=== PATIENT | male | born 1965 | race Caucasian/White ===

== ENCOUNTER → 2019-08-01 11:01 | Outpatient (CLI) | payer OTHER, SELFPAY ==
[2017-04-18 06:27] VITALS: BMI 37.0
[2019-08-01 11:59] LABS: Absolute Lymphocyte Count 1.27 X10^3/uL (0.83-4.51); Absolute Neutrophil Count 2.7 X10^3/uL (2.0-7.7); Basophil# 0.02 X10^3/uL; Basophil% 0.4 % (0-1); Eosinophil# 0.21 X10^3/uL; Eosinophils% 4.6 % (0-5); Hematocrit 44.1 % (40-54); Hemoglobin 14.8 g/dL (13.0-16.5); Lymphocyte # 1.27 X10^3/ul (4.0); Mean Corp Hgb Conc 33.6 g/dL (32-36); Mean Corpuscular Hgb 31.4 pg (27.0-32.0); Mean Corpuscular Volume 93.6 fL (80-94); Mean Platelet Vol. 9.2 fl (6.2-12.0); Monocyte# 0.32 X10^3/uL; Monocyte% 7.1 % (0-10); NRBC Flagged by Analyzer 0 % (0-5); Neutrophil # 2.69 X10^3/uL (2.7-7.7); Neutrophil % 59.5 % (47-70); Platelet Count 104 K/mm3 (150-450); RBC Distribution Width CV 13.1 % (11.6-14.6); RBC Distribution Width SD 44.8 fl (35.1-43.9); Red Blood Count 4.71 M/mm3 (4.6-6.2); White Blood Count 4.5 K/mm3 (4.4-11.0)
[2019-08-01 12:24] LABS: ALB/GLOB Ratio 1.1 RATIO (0.9-2.4); AST(SGOT) 16 U/L (15-37); Alanine Aminotransfer ALT/SGPT 26 U/L (16-61); Albumin, Serum 3.9 g/dL (3.2-5.0); Alkaline Phosphatase 61 U/L (45-117); Anion Gap 3 (5-15); BUN 14 mg/dL (7-18); BUN/Creat Ratio 17.3 RATIO (10-20); Calcium,Total 8.5 mg/dL (8.5-10.1); Chloride 107 mmol/L (98-107); Cholesterol 170 mg/dL (200); Creatinine, Serum 0.81 mg/dL (0.70-1.30); EST Glomerular Filtration Rate 105 mL/min (>60); Est Glom Filt Rate - Afr Amer 128 mL/min (>60); Globulin 3.7 g/dL (2.2-4.2); Glucose 116 mg/dL (74-106); High Density Lipoprotein 51 mg/dL; Potassium 4.1 mmol/L (3.5-5.1); Protein, Total 7.6 g/dL (6.4-8.2); Sodium Level 140 mmol/L (136-145); Triglycerides 44 mg/dL; Very Low Density Lipoprotein 9 mg/dL (5-40)
[2019-08-01 12:29] LABS: Microalbumin,Random Urine 33.6 mg/L (NO RANGE EST.); Microalbumin:Creatinine Ratio 37.7 mg/g CRE (<30 mg/g CRE)
== END ==
PROVIDERS: PCP Family Medicine; Referring Provider Family Medicine; Visit Provider Family Medicine
DX: E11.9 Type 2 diabetes mellitus without complications (principal); D64.9 Anemia, unspecified
CPT/HCPCS: 36415; 80053; 80061; 82043; 82570; 85025

== ENCOUNTER → 2019-09-28 07:08 | Outpatient (CLI) | payer OTHER, SELFPAY ==
[2019-08-26 10:32] VITALS: BMI 35.9
--- NOTE | 2019-09-28 07:09 | ECHOCS_ITS ---
Reason For Study: HTN Procedure This was a 2D Doppler, Color Flow transthoracic echocardiogram. The study was technically difficult. Exam performed in department. Left Ventricle Normal LV size. Left ventricular systolic function is normal. The estimated ejection fraction is 65 %. Stage 1 diastolic dysfunction. No regional wall motion abnormalities noted. Right Ventricle Normal RV size. Normal systolic function. Atria Normal left atrium. Normal right atrium. Mitral Valve Normal mitral valve. Tricuspid Valve Normal tricuspid valve. Mild (1+) tricuspid valve insufficiency. Pulmonary artery systolic pressure is 26 mmHg. Aortic Valve Normal aortic valve. Pulmonic Valve Normal pulmonic valve. Great Vessels Normal aortic root. The pulmonary artery is normal size. Normal inferior vena cava. Pericardium/Pleural No pericardial effusion. Medication Diluted definity 3ml given slow IV push to enhance endocardial definition. MMode/2D Measurements & Calculations LVIDd: 4.8 cm IVSd: 0.97 cm Ao root diam: 4.0 cm LVIDs: 2.8 cm LVPWd: 0.97 cm RVDd: 3.5 cm FS: 41.0 % LAV(MOD-bp): 67.7 ml LVAd ap4: 34.7 cm2 SV(MOD-sp4): 86.1 ml LAV(MOD-bp) Indexed: 30.7 ml/m2 EDV(MOD-sp4): 120.7 ml LAV(MOD-sp2): 66.6 ml EDV(sp4-el): 126.0 ml LAV(MOD-sp4): 58.0 ml LVAs ap4: 16.3 cm2 ESV(MOD-sp4): 34.6 ml ESV(sp4-el): 33.7 ml EF(MOD-sp4): 71.3 % EF(sp4-el): 73.3 % SV(sp4-el): 92.4 ml LA A4 area: 22.3 cm2 LA dimension(2D): 3.9 cm RA A4 area: 15.2 cm2 Time Measurements MV dec time: 0.21 sec Doppler Measurements & Calculations MV E max trevor: 71.8 cm/sec Lat Peak E' Trevor: 9.7 cm/sec Med Peak E' Trevor: 7.6 cm/sec MV A max trevor: 82.4 cm/sec E/E' lat: 7.4 E/E' med: 9.5 MV E/A: 0.87 Ao V2 max: 155.9 cm/sec LV V1 max: 105.3 cm/sec PA V2 max: 95.2 cm/sec Ao max P.7 mmHg LV V1 max P.4 mmHg TR max trevor: 236.3 cm/sec TR max P.4 mmHg Interpretation Summary Normal LV size. Left ventricular systolic function is normal. The estimated ejection fraction is 65 %. Stage 1 diastolic dysfunction. Contrast injection was performed. Ordering Physician: Senthil Hummel Referring Physician: Mayur Rodriguez Performed By: Yazmin Nair, LULI, RVT
--- NOTE | 2019-09-28 11:02 | STRESSREP ---
Stress Test Report Exercise myocardial perfusion stress test. 54-year-old man with a history of right bundle branch block and chest discomfort. Stress protocol: Resting EKG demonstrates normal sinus rhythm with a rate of 71 bpm and a right bundle branch block noted. Resting blood pressure is 122/88 mmHg. The patient exercised according to regular Deon protocol for total duration of 6 minutes. The maximum heart rate attained was 146 bpm which was 87% of maximum predicted heart rate the maximum workload was 7 metabolic equivalents. At rest there were no ST or T wave changes noted suggest ischemia at peak exercise nonspecific ST-T wave changes were noted. No chest pain was noted. Slight shortness of breath was present. Resting blood pressure at the resting blood pressure was 122/88 with a peak blood pressure 152/96 rate-pressure product was 21,800. Myocardial perfusion protocol. 15.0 mCi of technetium 99m sestamibi was injected at rest. Patient exercised according to regular Deon protocol for 6 minutes at peak exercise 45.0 mCi of technetium 99m sestamibi was injected stress images were obtained stress and rest images were reconstructed and compared in the short axis vertical and horizontal long axis. Gated images were also obtained Perfusion SPECT analysis: Review of the stress images demonstrate normal uptake of tracer noted in all areas of myocardium the resting images similar demonstrate normal uptake of tracer noted in all areas of the myocardium. No reversibility is noted suggest ischemia no previous infarct is noted. Gated SPECT analysis: The gated ejection fraction is 68%. Conclusion: Normal exercise myocardial perfusion stress test at a moderate workload. Preserved ejection fraction.
== END ==
PROVIDERS: PCP Family Medicine; Referring Provider Internal Medicine Cardiovascular Disease; Visit Provider Internal Medicine Cardiovascular Disease
DX: R03.0 Elevated blood-pressure reading, without diagnosis of hypertension (principal); R07.89 Other chest pain
CPT/HCPCS: 78452; 93017; 93306; A9500; Q9957; A4216; C8929

== ENCOUNTER → 2021-11-22 | Outpatient (CLI) | payer OTHER, SELFPAY ==
[2021-11-22 17:39] LABS: Absolute Lymphocyte Count 1.55 X10^3/uL (0.83-4.51); Absolute Neutrophil Count 3.6 X10^3/uL (2.0-7.7); Basophil# 0.02 X10^3/uL; Basophil% 0.4 % (0-1); Eosinophil# 0.15 X10^3/uL; Eosinophils% 2.6 % (0-5); Hematocrit 40.7 % (40-54); Hemoglobin 13.6 g/dL (13.0-16.5); Lymphocyte # 1.55 X10^3/ul (0.83-4.51); Lymphocyte % 27.2 % (19-41); Mean Corp Hgb Conc 33.4 g/dL (32-36); Mean Corpuscular Hgb 30.6 pg (27.0-32.0); Mean Corpuscular Volume 91.7 fL (80-94); Mean Platelet Vol. 9.1 fl (6.2-12.0); Monocyte# 0.39 X10^3/uL; Monocyte% 6.9 % (0-10); NRBC Flagged by Analyzer 0 % (0-5); Neutrophil # 3.56 X10^3/uL (2.7-7.7); Neutrophil % 62.5 % (47-70); Platelet Count 117 K/mm3 (150-450); RBC Distribution Width CV 13.2 % (11.6-14.6); RBC Distribution Width SD 43.9 fl (35.1-43.9); Red Blood Count 4.44 M/mm3 (4.6-6.2); White Blood Count 5.7 K/mm3 (4.4-11.0)
[2021-11-22 18:00] LABS: Hemoglobin A1c 6.6 % (3.8-5.6)
[2021-11-22 18:04] LABS: ALB/GLOB Ratio 1.1 RATIO (0.9-2.4); AST(SGOT) 20 U/L (15-37); Alanine Aminotransfer ALT/SGPT 32 U/L (16-61); Albumin, Serum 3.8 g/dL (3.2-5.0); Alkaline Phosphatase 59 U/L (45-117); Anion Gap 3 (5-15); BUN 21 mg/dL (7-18); BUN/Creat Ratio 24.6 RATIO (10-20); Calcium,Total 8.8 mg/dL (8.5-10.1); Chloride 106 mmol/L (98-107); Cholesterol 187 mg/dL (200); Creatinine, Serum 0.86 mg/dL (0.70-1.30); EST Glomerular Filtration Rate 98 mL/min (>60); Est Glom Filt Rate - Afr Amer 119 mL/min (>60); Globulin 3.5 g/dL (2.2-4.2); Glucose 131 mg/dL (74-106); High Density Lipoprotein 42 mg/dL; Protein, Total 7.3 g/dL (6.4-8.2); Sodium Level 137 mmol/L (136-145); Triglycerides 197 mg/dL; Very Low Density Lipoprotein 39 mg/dL (5-40)
== END | disposition home or self-care (01) ==
LOC: MFPLAB 14:58
PROVIDERS: PCP Family Medicine; Visit Provider Family Medicine
DX: D69.6 Thrombocytopenia, unspecified (principal); E66.01 Morbid (severe) obesity due to excess calories; E11.9 Type 2 diabetes mellitus without complications
CPT/HCPCS: 36415; 80053; 80061; 83036; 85025

== ENCOUNTER → 2021-11-24 | Outpatient (CLI) | payer OTHER, SELFPAY ==
[2021-11-24 08:35] LABS: Microalbumin,Random Urine 40.6 mg/L (NO RANGE EST.)
== END | disposition home or self-care (01) ==
LOC: LAB 07:10
PROVIDERS: PCP Family Medicine; Visit Provider Family Medicine
DX: E11.9 Type 2 diabetes mellitus without complications (principal)
CPT/HCPCS: 82043

== ENCOUNTER → 2022-01-15 | Outpatient (CLI) | payer OTHER, SELFPAY | END | disposition home or self-care (01) | LOC: LABSPEC 16:41 | PROVIDERS: PCP Family Medicine; Visit Provider Family Medicine | DX: U07.1 COVID-19 (principal) | CPT/HCPCS: 87635; U0003; U0005 ==

== ENCOUNTER → 2023-12-18 | Outpatient (CLI) | payer OTHER, SELFPAY ==
--- NOTE | 2023-12-18 11:14 | RAD_ITS ---
STUDY: X-RAY - RIGHT KNEE REASON FOR EXAM: Male, 58 years old. knee pain TECHNIQUE: 4 view(s) of the knee. COMPARISON: None. FINDINGS: Normal visualized distal femur. Normal visualized proximal tibia and fibula. Normal proximal tibiofibular articulation. There is severe degenerative arthrosis of the medial femorotibial compartment with severe joint space narrowing. There is mild degenerative arthrosis of the lateral femorotibial compartment. There is mild degenerative arthrosis of the patellofemoral articulation. There is a soft tissue prominence in the suprapatellar region suggesting a small volume joint effusion. The soft tissue structures are unremarkable. RAD/Knee 4 or More Views IMPRESSION: Degenerative arthrosis. Electronically Signed: John Cameron MD at 13:35 EDT ,
[2023-12-18 15:23] LABS: Absolute Lymphocyte Count 1.49 X10^3/uL (0.83-4.51); Absolute Neutrophil Count 3.8 X10^3/uL (2.0-7.7); Basophil# 0.04 X10^3/uL; Basophil% 0.6 % (0-1); Eosinophil# 0.84 X10^3/uL; Eosinophils% 12.7 % (0-5); Hematocrit 41.7 % (40-54); Lymphocyte # 1.49 X10^3/ul (0.83-4.51); Lymphocyte % 22.5 % (19-41); Mean Corp Hgb Conc 33.6 g/dL (32-36); Mean Corpuscular Hgb 30.6 pg (27.0-32.0); Mean Corpuscular Volume 91.2 fL (80-94); Mean Platelet Vol. 8.8 fl (6.2-12.0); Monocyte# 0.43 X10^3/uL; Monocyte% 6.5 % (0-10); NRBC Flagged by Analyzer 0 % (0-5); Neutrophil # 3.81 X10^3/uL (2.7-7.7); Neutrophil % 57.4 % (47-70); Platelet Count 116 K/mm3 (150-450); RBC Distribution Width CV 13.1 % (11.6-14.6); RBC Distribution Width SD 43.8 fl (35.1-43.9); Red Blood Count 4.57 M/mm3 (4.6-6.2); White Blood Count 6.6 K/mm3 (4.4-11.0)
[2023-12-18 15:44] LABS: Vitamin D,25 Hydroxy 31.8 ng/mL
[2023-12-18 15:50] LABS: AST(SGOT) 21 U/L (15-37); Alanine Aminotransfer ALT/SGPT 29 U/L (16-61); Albumin, Serum 3.7 g/dL (3.2-5.0); Alkaline Phosphatase 64 U/L (45-117); Anion Gap 5 (5-15); BUN 18 mg/dL (7-18); BUN/Creat Ratio 24.4 RATIO (10-20); Calcium,Total 9.1 mg/dL (8.5-10.1); Chloride 106 mmol/L (98-107); Cholesterol 172 mg/dL (200); Creatinine, Serum 0.74 mg/dL (0.70-1.30); EST Glomerular Filtration Rate 116 mL/min (>60); Est Glom Filt Rate - Afr Amer 140 mL/min (>60); Globulin 3.6 g/dL (2.2-4.2); Glucose 125 mg/dL (74-106); High Density Lipoprotein 44 mg/dL; PSA,Total - Annual Screen 0.89 ng/mL (0.00-4.00); Protein, Total 7.3 g/dL (6.4-8.2); Sodium Level 138 mmol/L (136-145); Thyroid Stim Hormone (TSH) 2.69 uIU/mL (0.358-3.74); Triglycerides 86 mg/dL; Very Low Density Lipoprotein 17 mg/dL (5-40)
== END | disposition home or self-care (01) ==
LOC: MTLAB 11:07
PROVIDERS: PCP Family Medicine; Referring Provider Family Medicine; Visit Provider Family Medicine
DX: E11.9 Type 2 diabetes mellitus without complications (principal); E66.01 Morbid (severe) obesity due to excess calories; M17.10 Unilateral primary osteoarthritis, unspecified knee; D69.6 Thrombocytopenia, unspecified; Z12.5 Encounter for screening for malignant neoplasm of prostate
CPT/HCPCS: 36415; 73564; 80053; 80061; 82306; 84153; 84443; 85025; G0103

== ENCOUNTER → 2024-12-25 | Outpatient (CLI) | payer OTHER, SELFPAY ==
--- NOTE | 2024-12-25 07:23 | CT_ITS ---
PROCEDURE: LIMITED CHEST CT CARDIAC ONLY 12/25/2024 REASON FOR EXAM: HTN Family history of coronary disease. Right bundle branch block TECHNIQUE: LIMITED CHEST CT CARDIAC ONLY CONTRAST: None One or more dose reduction techniques were used (e.g., Automated exposure control, adjustment of the mA and/or kV according to patient size, use of iterative reconstruction technique). RADIATION DOSE SUMMARY: CTDlvol: 12.19 mGy DLP: 195.04 mGycm COMPARISON: None FINDINGS: Small benign-appearing mediastinal lymph nodes. Small bilateral benign- appearing axillary lymph nodes. Borderline cardiomegaly. Coronary artery calcification. Lungs are clear. CT/Limited Chest CT Cardiac Only IMPRESSION: Coronary artery calcification. Reading Location: [id number]
--- NOTE | 2024-12-25 07:23 | CT_ITS ---
PROCEDURE: LIMITED CHEST CT CARDIAC ONLY 12/25/2024 REASON FOR EXAM: HTN Family history of coronary disease. Right bundle branch block TECHNIQUE: LIMITED CHEST CT CARDIAC ONLY CONTRAST: None One or more dose reduction techniques were used (e.g., Automated exposure control, adjustment of the mA and/or kV according to patient size, use of iterative reconstruction technique). RADIATION DOSE SUMMARY: CTDlvol: 12.19 mGy DLP: 195.04 mGycm COMPARISON: None FINDINGS: Small benign-appearing mediastinal lymph nodes. Small bilateral benign- appearing axillary lymph nodes. Borderline cardiomegaly. Coronary artery calcification. Lungs are clear. CT/Limited Chest CT Cardiac Only IMPRESSION: Coronary artery calcification. Reading Location: [id number]
--- OUTSIDE RECORDS SUMMARY | 2024-12-25 07:39 | XMS RPT_ITS | CCD ---
Author Organization [facility] Care Team Providers Care Sexologist Name Role Phone Nathen Powell MD Primary Care Provider Nathen Powell MD Referring Provider Shaheed CORTEZ, Dr. Ndiaye Attending Provider Senthil Hummel Attending Unavailable Nathen Powell Referring Unavailable Nathen Powell Primary Care Unavailable Nathen Powell Primary Care Unavailable Senthil Hummel Referring Unavailable Senthil Hummel Attending Unavailable Medications Current Medications Medication Drug Class(es) Dates Sig (Normalized) Sig (Original) famotidine 20 mg oral tablet (3 sources) Histamine-2 Receptor Antagonist Start: 08-26-2019 take 1 tablet by mouth once daily as needed Famotidine 20 mg tablet Active 20 mg PO DAILY as needed August 26, 2019 12:00am fluticasone propionate 0.05 mg/actuat metered dose nasal spray (4 sources) Corticosteroid Start: 05-03-2021 End: 11-03-2024 take 50 ug nasal route once daily as needed Fluticasone Propionate (Flonase Allergy Relief) 50 mcg/actuation spray,suspension Active 1 NMA INTRANASAL DAILY as needed November 03, 2024 3:30pm administer into each nostril Start: 05-03-2021 take 1 spray(s) nasa l route once daily Fluticasone Propionate (Flonase Allergy Relief) 50 mcg/actuation spray,suspension Active 1 SPRAY INTRANASAL DAILY May 03, 2021 1:00am administer into each nostril lisinopril 20 mg oral tablet (18 sources) Angiotensin Converting Enzyme Inhibitor Start: 08-26-2019 End: 11-03-2024 take 1 tablet by mouth once daily Lisinopril 20 mg tablet Active 20 mg PO DAILY 90 November 03, 2024 3:32pm Start: 08-26-2019 End: 08-26-2019 take 1 tablet by mouth once daily Lisinopril 10 mg tablet Discontinued 10 mg PO DAILY August 26, 2019 12:00am August 26, 2019 11:59am Start: 04-15-2017 End: 08-26-2019 take 1 tablet by mouth at bedtime Lisinopril 5 MG tablet Discontinued 5 mg PO AT BEDTIME April 15, 2017 1:00am August 26, 2019 11:21am loratadine 10 mg oral tablet (2 sources) Start: 06-29-2022 End: 09-18-2023 take 1 tablet by mouth once daily as needed Loratadine 10 mg tablet Active 10 mg PO DAILY as needed September 18, 2023 1:27pm magnesium chloride 598 mg delayed release oral tablet (1 source) Start: 11-03-2024 take 1 tablet by mouth once daily Magnesium Chloride 64 mg tablet,delayed release (DR/EC) Active 64 mg PO daily November 03, 2024 12:00am metFORMIN hydrochloride 500 mg oral tablet (4 sources) Biguanide Start: 11-03-2024 take 1 tablet by mouth twice daily Metformin 500 mg tablet Active 500 mg PO TWICE A DAY November 03, 2024 3:30pm Start: 04-15-2017 End: 11-03-2024 Metformin 500 MG tablet Disc ontinued 250 mg PO TWICE A DAY April 15, 2017 1:00am November 03, 2024 3:32pm Start: 04-15-2017 take 250 mg by mouth twice daily Metformin Active 250 MG PO TWICE A DAY April 15, 2017 1:00am Multivitamin preparation (4 sources) Start: 08-26-2019 take 1 tablet by mouth once daily Multivitamin Active 1 TABLET PO DAILY August 26, 2019 12:00am Start: 04-15-2017 End: 08-26-2019 Multivitamin Discontinued 1 EACH PO DAILY April 15, 2017 1:00am August 26, 2019 11:22am Multivitamin tablet (1 source) Start: 08-26-2019 Multivitamin tablet Active 1 {tbl} PO DAILY August 26, 2019 12:00am omeprazole 20 mg delayed release oral capsule (1 source) Proton Pump Inhibitor Start: 11-03-2024 take 1 capsule by mouth once daily Omeprazole 20 mg capsule,delayed release(DR/EC) Active 20 mg PO daily Angie 17th, 2025 12:00am pseudoephedrine hydrochloride 30 mg oral tablet (1 source) alpha-Adrenergi c Agonist Start: 06-29-2022 take 1 tablet by mouth once as needed Pseudoephedrine Hcl (Sudafed) 30 mg tablet Active 30 mg PO ONCE as needed June 29, 2022 1:00am Completed/Discontinued Medications Medication Drug Class(es) Dates Sig (Normalized) Sig (Original) B-Complex With Vitamin C (2 sources) Start: 03-29-2020 End: 05-03-2021 take 1 capsule by mouth once daily B-Complex With Vitamin C Discontinued 1 CAP PO DAILY March 29, 2020 1:00am May 03, 2021 2:39pm B-Complex With Vitamin C capsule (1 source) Start: 03-29-2020 End: 05-03-2021 B-Complex With Vitamin C capsule Discontinued 1 NMA PO DAILY March 29, 2020 1:00am May 03, 2021 2:39pm cinnamon bark 500 mg oral capsule (3 sources) Start: 04-15-2017 End: 08-26-2019 take 1 capsule by mouth twice daily Cinnamon Bark 500 MG capsule Discontinued 500 mg PO TWICE A DAY April 15, 2017 1:00am August 26, 2019 11:21am ferrous sulfate 140 mg extended release oral tablet (6 sources) Start: 03-29-2020 End: 06-29-2022 take 1 tablet by mouth every other day Ferrous Sulfate 140 mg (45 mg iron) tablet extended release Discontinued 140 mg PO .QOD March 29, 2020 1:00am June 29, 2022 3:36pm Start: 08-26-2019 End: 03-29-2020 take 1 tablet by mouth once daily as needed Ferrous Sulfate 325 mg (65 mg iron) tablet Discontinued 325 mg PO DAILY as needed August 26, 2019 12:00am March 29, 2020 4:29pm Lactobacillus Combination No.9 (Adult 50 Plus Probiotic) 4 billion cell capsule (1 source) Start: 06-29-2022 End: 09-18-2023 take 4 capsules by mouth once daily as needed Lactobacillus Combination No.9 (Adult 50 Plus Probiotic) 4 billion cell capsule Discontinued 4000 NMA PO DAILY as needed June 29, 2022 1:00am September 18, 2023 1:15pm administer with a meal meloxicam 15 mg oral tablet (1 source) Nonsteroidal Anti-inflammatory Drug Start: 06-29-2022 End: 09-18-2023 take 1 tablet by mouth once daily as needed Meloxicam 15 mg tablet Discontinued 15 mg PO DAILY as needed June 29, 2022 1:00am September 18, 2023 1:15pm Multivitamin 1 EACH tablet (1 source) Start: 04-15-2017 End: 08-26-2019 Multivitamin 1 EACH tablet Discontinued 1 NMA PO DAILY April 15, 2017 1:00am August 26, 2019 11:22am PARoxetine hydrochloride 10 mg oral tablet (3 sources) Serotonin Reuptake Inhibitor Start: 04-15-2017 End: 08-26-2019 take 1 tablet by mouth every other day Paroxetine Hcl 10 MG tablet Discontinued 10 mg PO EVERY OTHER DAY April 15, 2017 1:00am August 26, 2019 11:22am [place] (6 sources) Start: 08-26-2019 End: 11-03-2024 take 1 capsule by mouth twice daily at mealtime [place] 450 mg capsule Discontinued 450 mg PO TWICE A DAY August 26, 2019 12:00am November 03, 2024 3:30pm give with food (meal/snack) Start: 08-26-2019 take 450 mg by mouth twice daily at mealtime [place] Active 450 MG PO TWICE A DAY August 26, 2019 12:00am give with food (meal/snack) Start: 04-15-2017 End: 08-26-2019 take 1 capsule by mouth twice daily [place] 160 MG capsule Discontinued 160 mg PO TWICE A DAY April 15, 2017 1:00am August 26, 2019 11:22am Start: 04-15-2017 End: 08-26-2019 take 160 mg by mouth twice daily [place] Disconti nued 160 MG PO TWICE A DAY April 15, 2017 1:00am August 26, 2019 11:22am Vitamin B Complex (2 sources) Start: 04-15-2017 End: 08-26-2019 Vitamin B Complex Discontinu ed 1 TABLET PO NEEDED April 15, 2017 1:00am August 26, 2019 11:22am Vitamin B Complex 1 EACH capsule (1 source) Start: 04-15-2017 End: 08-26-2019 Vitamin B Complex 1 EACH cap mann Discontinued 1 {tbl} PO NEEDED as needed for COLD SYMPTOMS April 15, 2017 1:00am August 26, 2019 11:22am Problems Problem Classification Problem Date Documented Da te Episodic/Chronic Conduction disorders (4 sources) Right bundle branch block; Translations: [Unspecified right bundle-branch block] Onset: 12-21-2024 08-25-2019 Chronic Essential hypertension (4 sources) Essential hypertension; Translations: [Essential (primary) hypertension] Onset: 12-21-2024 03-28-2020 Chronic Nonspecific chest pain (4 sources) Chest discomfort; Translations: [Other chest pain] 03-28-2020 Episodic Other circulatory disease (3 sources) Elevated blood-pressure reading without diagnosis of hypertension; Translations: [Elevated blood-pressure reading, without diagnosis of hypertension] 03-28-2020 Episodic Other lower respiratory disease (1 source) Dyspnea; Translations: [Shortness of breath] 07-12-2022 Episodic Residual codes; unclassified (1 source) Obstructive sleep apnea syndrome; Translations: [Obstructive sleep apnea (adult) (pediatric)] 06-29-2022 Chronic Results Test Name Value Interpretation Reference Range Facility Cardiology Visit Reporton Cardiology Visit Report [facility] [place] [id number] [facility] [address] [place] [address] OFFICE VISIT Date of Service: 11/03/24 MR#: [id number] Acct: [id number] Name: DOV ANNE Rep #: [id number] : 1965 Provider: Dr. Senthil Hummel MD Age/Sex: 59/M Location[place] [facility] [place] Status: Signed HPI HPI History of Present Illness Details: This is a 59-year-old male who presents to the office today for a cardiovascular follow up visit. He has a history of hypertension and diabetes who presents for follow-up visit. He says that he has been giving occasional mild chest discomfort which he calls indigestion. He also gets some shortness of breath after meals. He remember that in September 2019 he underwent an exercise stress test with no evidence of ischemia was noted on the moderate workload and he did have preserved left ventricular systolic function. From a cardiac standpoint, the patient is doing well. He does acknowledge an occasional palpitation- he describes this as a skipped beat. He denies chest pain, pressure or heaviness. He denies SOB, Orthopnea, and PND. He does wear a CPAP at night. He does not have bleeding issues; no blood in urine, stool or nosebleeds. He denies any decrease in energy level, myalgias, or claudication. He does not have edema, or sudden weight gain. He does acknowledge occasional lightheadedness with low blood sugars. He denies dizziness, syncopal or near syncopal episodes, and headaches. 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 Accompanied by: Self Is patient in pain?: No Allergies No Known Allergies Allergy (Verified 11/03/24 15:29) Medications ???Medication ???Instructions ???Recorded ???Confirmed ???Type famotidine 20 mg tablet 20 mg PO DAILY PRN 08/26/19 History multivitamin 1 tab PO DAILY 08/26/19 11/03/24 H istory pseudoephedrine HCl 30 mg tablet 30 mg PO ONCE PRN 06/29/22 5 History (Sudafed) loratadine 10 mg tablet 10 mg PO DAILY PRN 09/18/23 History fluticasone propionate 50 1 spray intranasal DAILY PRN 11/0311/03/24 History mcg/actuation nasal spray,suspension (Flonase Allergy Relief) lisinopril 20 mg tablet 20 mg PO DAILY #90 tabs 11/03/24 0 11/03/24 Rx magnesium chloride 64 mg 64 mg PO QDAY 11/03/24 11/03/24 Hi story (magnesium chloride) tablet,delayed release metformin 500 mg tablet 500 mg PO BID 11/03/24 11/03/24 Hi story omeprazole 20 mg capsule,delayed 20 mg PO QDAY 11/03/24 11/03/24 Hi story release PFSH Medical History Chest pain Essential (primary) hypertension FIOR (generalized anxiety disorder) GERD (gastroesophageal reflux disease) Obesity DALY on CPAP Right bundle branch block (RBBB) Shortness of breath Thrombocytopenia Type 2 diabetes mellitus Surgical History H/O rectal polypectomy History of hand surgery History of tonsillectomy Family History Father Heart disease arrhythmia Grandmother CAD (coronary artery disease) CABG Aunt CAD (coronary artery disease) coronary stents Mother COPD (chronic obstructive pulmonary disease) Social History Smoking Status: Never smoker alcohol intake: current alcohol intake frequency: a few times a month substance use type: does not use caffeine: Yes Type: coffee Number of servings: 3 ROS Const Const: Negative for fatigue, weakness, headache(s), daytime sleepiness or difficulty sleeping ENT ENT: Negative for headache(s), dizziness or Nosebleed/epistaxis Cardio Chest Pain: No Palpitations: No Edema: None (wears compression stockings ) Resp Respiratory: Negative for SOB with activity, SOB at rest, SOB orthopnea SOB lying down or Cough GI GI: Negative nausea, vomiting or heartburn Neuro Neuro: Negative for dizziness, lightheadedness, near syncope, headache(s) or weakness Endo Endo: Negative for fatigue Supplemental Info Supplemental Information Echocardiogram 09/28/2019: Interpretation Summary Normal LV size. Left ventricular systolic function is normal. The estimated ejection fraction is 65 %. Stage 1 diastolic dysfunction. Contrast injection was performed. Stress test 09/28/2019: Conclusion: Normal exercise myocardial perfusion stress test at a moderate workload. Preserved ejection fraction. Labs: LDL Cholesterol 111 mg/dL (0-130) HDL Cholesterol 44 mg/dL (4 (more content not included)... Normal [facility] - Microbiology an d Antimicrobial susceptibilityon 01-15-2022 SARS-CoV-2 (COVID-19) RNA JESSICA+probe Ql (Unsp spec) Detected Not Detect [facility] Work Phone: Comment on above: Normal Reference Ran ge: Not DetectedMethod:(RT-PCR) real-time reverse transcriptase PCRLuminex JIM Instrument*The Food and Drug Administration (FDA) has issued an Emergency Use Authorization (EAU) for the JIM SARS-CoV-2 Assay for the rapid detection of the virus that causes COVID-19. This test has been validated, but the FDAs independent review of this validation is pending.*Negative results do not preclude infection and should not be used as the sole basis for treatment or patient management. Optimum specimen types and timing for peak viral levels during infections caused by SARS-CoV-2 have not been determined. Collection of multiple specimens from the same patient may be necessary to detect the virus. The possibility of a false negative result should be considered if the patient has clinical presentation or has had recent exposure. Thin prep Papanicolaou smear with manual screeningon 11-24-2021 Thin prep Papanicolaou smear with manual screening 40.6 mg/L NO RANGE EST. [facility] Work Phone: Absolute lymphocyte counton 11-22-2021 Lymphocytes Auto (Unsp spec) [#/Vol] 1.55 10*3/uL 0.83-4.51 [facility] Work Phone: Basophil percentageon 2021 Basophils/100 WBC (Bld) 0.4 % 0-1 [facility] Work Phone: Bilirubin [Mass/Vol] 0.80 mg/dL 0.20-1.00 [facility] Work Phone: Comment on above: For patients on eltr ombopag therapy, use of Dimension [place] TBIL is not recommended. Chloride [Moles/Vol] 106 mmol/L 98-107 [facility] Work Phone: Cholesterol [Mass/Vol] 187 mg/dL <200 [facility] Work Phone: Comment on above: <200 mg/dL Desirable 200-240 mg/dL Borderline >240 mg/dL High Risk Eosinophils/100 WBC (Bld) 2.6 % 0-5 [facility] Work Phone: Glucose [Mass/Vol] 131 mg/dL 74-[address] [facility] Work Phone: Comment on above: Fasting Glucose resu lt greater than or equal to 126 mg/dL suggests DIABETES MELLITUS per A.D.A. criteria. Neutrophils (Bld) [#/Vol] 3.6 10*3/uL 2.0-7.7 [facility] Work Phone: Neutrophils/100 WBC (Bld) 62.5 % 47-70 [facility] Work Phone: Potassium [Moles/Vol] 4.0 mmol/L 3.5-5.1 [facility] Work Phone: Protein [Mass/Vol] 7.3 g/dL 6.4-8.[address] [facility] Work Phone: Sodium [Moles/Vol] 137 mmol/L 136-[address] [facility] Work Phone: Triglyceride [Mass/Vol] 197 mg/dL <199 [facility] Work Phone: Comment on above: The drugs N-Acetylcy steine and Metamizole may falsely depress this assay.Serum Triglycerides Reference Interval Normal <150 mg/dL Borderline high 150 - 199 mg/dL High 200 - 499 mg/dL Very High > or = 500 mg/dL WBC (Bld) [#/Vol] 5.7 10*3/uL 4.4-11.[address] [facility] Work Phone: Blood erythrocytes count (nu mber/volume)on 11-22-2021 RBC (Bld) [#/Vol] 4.44 10*6/uL 4.6-6.2 [facility] Work Phone: Blood hemoglobin measurement (mass/volume)on 11-22-2021 Hemoglobin (Bld) [Mass/Vol] 13.6 g/dL 13.0-16.5 [facility] Work Phone: Blood lymphocytes/100 leukoc yteson 11-22-2021 Lymphocytes/100 WBC (Bld) 27.2 % 19-41 [facility] Work Phone: Blood monocytes/100 leukocyt eson 11-22-2021 Monocytes/100 WBC (Bld) 6.9 % 0-10 [facility] Work Phone: Blood platelet mean volumeon 11-22-2021 Platelet mean volume (Bld) [Entitic vol] 9.1 fL 6.2-12.0 [facility] Work Phone: Determination of erythrocyte mean corpuscular volume (MCV)on 11-22-2021 MCV (RBC) [Entitic vol] 91.7 fL 80-94 [facility] Work Phone: Hematocrit Auto (Bld) [Volum e fraction]on 11-22-2021 Hematocrit (Bld) [Volume fraction] 40.7 % 40-54 [facility] Work Phone: Laboratory - Chemistry and C hemistry - challengeon 11-22-2021 ALP [Catalytic activity/Vol] 59 U/L 45-117 [facility] Work Phone: ALT [Catalytic activity/Vol] 32 U/L 16-61 [facility] Work Phone: CO2 [Moles/Vol] 28.0 mmol/L 21.0-32.0 [facility] Work Phone: Globulin (S) [Mass/Vol] 3.5 g/dL 2.2-4.2 [facility] Work Phone: Urea nitrogen/Creatinine [Mass ratio] 24.6 mg/mg 10-20 [facility] Work Phone: Laboratory - Hematology and Cell countson 11-22-2021 Erythrocyte distribution width (RBC) [Entitic vol] 43.9 fL 35.1-43.9 [facility] Work Phone: Erythrocyte distribution width (RBC) [Ratio] 13.2 % 11.6-14.6 [facility] Work Phone: Immature granulocytes/100 WBC (Bld) 0.400 % 0.0-0.9 [facility] Work Phone: Comment on above: IG% - Immature Granu locytes (promyelocytes, myelocytes and metamyelocytes) > 1% indicates that a LEFT SHIFT is Present. MCH (RBC) [Entitic mass] 30.6 pg 27.0-32.0 [facility] Work Phone: Nucleated RBC/100 WBC (Bld) [Ratio] 0 % 0-5 [facility] Work Phone: MCHC Auto (RBC) [Mass/Vol]on 11-22-2021 MCHC (RBC) [Mass/Vol] 33.4 g/dL 32-36 [facility] Work Phone: No Panel Informationon 11-22 Estimated GFR (MDRD) Amer 119 mL/min >60 [facility] Work Phone: Comment on above: GFR Calc Estimated GFR (MDRD) Non-Af Amer 98 mL/min >60 [facility] Work Phone: Comment on above: Non- GFR Calc Platelets bldon 11-22-2021 Platelets (Bld) [#/Vol] 117 10*3/uL 150-450 [facility] Work Phone: Serum or plasma albumin paulina urement (mass/volume)on 11-22-2021 Albumin [Mass/Vol] 3.8 g/dL 3.2-5.[address] [facility] Work Phone: Serum or plasma albumin/glob ulin mass ratioon 11-22-2021 Albumin/Globulin [Mass ratio] 1.1 {ratio} 0.9-2.4 [facility] Work Phone: Serum or plasma calcium paulina urement (mass/volume)on 11-22-2021 Calcium [Mass/Vol] 8.8 mg/dL 8.5-10.[address] [facility] Work Phone: Serum or plasma cholesterol in HDL measurement (mass/volume)on 11-22-2021 Cholesterol in HDL [Mass/Vol] 42 mg/dL >40 [facility] Work Phone: Comment on above: The drugs N-Acetylcy steine and Metamizole may falsely depress this assay. Reference Range HDL <40 mg/dL Low HDL Cholesterol HDL >or= 60 mg/dL High HDL Cholesterol Serum or plasma cholesterol in VLDL measurement (mass/volume)on 11-22-2021 Cholesterol in VLDL [Mass/Vol] 39 mg/dL 5-40 [facility] Work Phone: Serum or plasma creatinine m easurement (mass/volume)on 11-22-2021 Creatinine [Mass/Vol] 0.86 mg/dL 0.70-1.30 [facility] Work Phone: Comment on above: The validity of the calculated GFR & GFRAA in patients over 70 years has not been determined. Clinical correlation is essential. Serum or plasma low density lipoprotein (LDL) cholesterol measurement (mass/volume)on 11-22-2021 Cholesterol in LDL [Mass/Vol] 106 mg/dL 0-130 [facility] Work Phone: Serum or plasma urea nitroge n measurement (mass/volume)on 11-22-2021 Urea nitrogen [Mass/Vol] 21 mg/dL 7-18 [facility] Work Phone: Thin prep Papanicolaou smear with manual screeningon 11-22-2021 Thin prep Papanicolaou smear with manual screening 20 U/L 15-37 [facility] Work Phone: Thin prep Papanicolaou smear with manual screening 3 5-15 [facility] Work Phone: Whole blood hemoglobin A1c/t otal hemoglobin ratio (mass fraction)on 11-22-2021 HbA1c (Bld) [Mass fraction] 6.6 % 3.8-5.6 [facility] Work Phone: Comment on above: Normal < 5.7 % Predi abetic 5.7 - 6.4 % Diabetic >or= 6.5 % Please note range changes. Vital Signs Date Time Vital Sign Value Performing Clinician Faci catyy 11-03-2024 15:27-0400 Body height 172.72 cm Natehn Powell MD Work Phone: [facility] 11-03-2024 15:27-0400 Body mass index (BMI) [Ratio] 36.8 kg/m2 Nathen Powell MD Work Phone: [facility] 11-03-2024 15:27-0400 Body weight 109.76 kg Nathen Powell MD Work Phone: [facility] 11-03-2024 15:27-0400 Diastolic blood pressure 84 mm[Hg] Nathen Powell MD Work Phone: [facility] 11-03-2024 15:27-0400 Heart rate 68 /min Nathen Powell MD Work Phone: [facility] 11-03-2024 15:27-0400 Respiratory rate 16 /min Nathen Powell MD Work Phone: [facility] 11-03-2024 15:27-0400 Systolic blood pressure 122 mm[Hg] Nathen Powell MD Work Phone: [facility] Encounters Encounter Date Encounter Type Care Provider Facility Start: 12-25-2024 ambulatory Nathen Powell Facility:[facility] Start: 11-03-2024 End: 11-03-[address] Senthil Hummel MD -[facility] Work Phone: Start: 11-03-2024 End: 11-03-2024 ambulatory Nathen Powell MD Work Phone: [facility] Work Phone: Start: 01-15-2022 End: 01-15-2022 ambulatory [facility] Work Phone: Start: 01-15-2022 End: 01-15-2022 Patient encounter procedure [facility], Specimen Start: 11-24-2021 End: 11-24-2021 Patient encounter procedure [facility] Start: 11-22-2021 End: 11-22-2021 Patient encounter procedure [facility], [facility] Immunizations Immunization Date Immunization Notes Care Provider [facility] 04-02-2024 influenza, seasonal, injectable, preservative free Nathen Powell MD Work Phone: [facility] 04-04-2023 influenza, injectabl e, quadrivalent, preservative free Nathen Powell MD Work Phone: [facility] 04-09-2022 influenza, injectabl e, quadrivalent, preservative free Nathen Powell MD Work Phone: [facility] 03-02-[address] [facility] [employer] Nathen Powell MD Work Phone: [facility] 04-04-2021 [facility] 04-04-2021 influenza, injectabl e, quadrivalent, preservative free Nathen Powell MD Work Phone: [facility] 04-04-2021 influenza, seasonal, injectable [facility] Work Phone: 06-28-2020 [facility] ([facility]) [facility] 05-31-2020 [facility] ([facility]) [facility] 03-24-2020 influenza, injectabl e, quadrivalent, preservative free Nathen Powell MD Work Phone: [facility] 03-24-2020 influenza, seasonal, injectable [facility] Work Phone: 04-13-2019 influenza, injectabl e, quadrivalent, preservative free Nathen Powell MD Work Phone: [facility] 04-13-2019 influenza, seasonal, injectable [facility] Work Phone: 04-17-2018 influenza, injectabl e, quadrivalent, preservative free Nathen Powell MD Work Phone: [facility] 04-17-2018 influenza, seasonal, injectable [facility] Work Phone: 03-13-2017 influenza, injectabl e, quadrivalent, preservative free Nathen Powell MD Work Phone: [facility] 03-13-2017 influenza, seasonal, injectable [facility] Work Phone: 02-16-2016 influenza, injectabl e, quadrivalent, preservative free Nathen Powell MD Work Phone: [facility] [facility]2016 influenza, seasonal, injectable [facility] Work Phone: 03-16-2015 influenza, injectabl e, quadrivalent, preservative free Nathen Powell MD Work Phone: [facility] 03-16-2015 influenza, seasonal, injectable [facility] Work Phone: 02-11-2014 influenza, injectabl e, quadrivalent, preservative free Nathen Powell MD Work Phone: [facility] 02-11-2014 influenza, seasonal, injectable [facility] Work Phone: 04-13-2013 Influenza virus vaccine [facility] Payers Date Payer Category Payer Self-pay [id number] 2016 Unknown [id number] Self-pay SELF PAY INSURANCE [id number] Unknown [id number] Unknown [id number] Social History Date Type Detail Facility Start: [facility]03[facility]21 [facility] Work Phone: Start: 1965 Sex Assigned At Male [facility] Start: 06-29-2022 [facility] (finding[facility] Evaluation note Note Date & Type Note Facility Evaluation note No assessment information availa ble [facility] Work Phone: Reason for referral (narrative) Note Date & Type Note Facility Reason for referral (narrative) No reason for referral information available [facility] Work Phone: Chief Complaint and Reason for Visit Chief Complaint E ORDER Chief Complaint Admit Date 1 Y FU November 03, 2024 3:25 pm Family History No Family History Records Found Relationship Condition Age at Onset Recorded Date/T simran father Cardiac disease Unknown grandmother Coronary artery disease Unknown aunt Coronary artery disease Unknown mother Chronic obstructive pulmonary disease Unk nown Advance Directives No Advanced Directives Records Found Advance Directive Response Recorded Date/ Time Living Will No April 15 017 3:11pm Power of Public Affairs Manager No April 15, 2017 3:11pm Advance Directive Response Recorded Date/ Time Living Will No April 15 017 3:11pm Do you have a Healthcare Power of Public Affairs Manager? No April 15, 2017 3:11pm Summary Purpose Additional Source Comments Goals (unrecognized section and content) Goals may be documented in a n alternate sectionGoals may be documented in an alternate section Care Teams (unrecognized sec tion and content) Team Status: Active Member Role Status Dates Nathen Powell MD Primary Care Provider Active Team Status: Inactive Member Role Status Dates Nathen Powell MD Primary Care Provider Active St art: November 03, 2024 End: November 03, 2024 Nathen Powell MD Referring Provider Active Start : November 03, 2024 End: November 03, 2024 Dr. Senthil Hummel MD Attending Provider Active S tart: November 03, 2024 End: November 03, 2024 (unrecognized sect ion and content) No Status Records Found INFORMATION SOURCE (unrecogn ized section and content) DATE CREATED AUTHOR 12/24/2024 [facility] FOR RECORDS PERTAINING TO PATIENTS WHO ARE OR HAVE BEEN ENROLLED IN A CHEMICAL DEPENDENCY/SUBSTANCEABUSE PROGRAM, SOME INFORMATION MAY BE OMITTED. This clinical summary was aggregated from multiple sources. Caution should be exercised in using it in the provision of clinical care. This summary normalizes information from multiple sources, and as a consequence, information in this document may materially change the coding, format and clinical context of patient data. In addition, data may be omitted in some cases. CLINICAL DECISIONS SHOULD BE BASED ON THE PRIMARY CLINICAL RECORDS. [employer] provides no warranty or guarantee of the accuracy or completeness of information in this document.
--- OUTSIDE RECORDS SUMMARY | 2024-12-25 07:39 | XMS RPT_ITS | CCD ---
Author Organization [facility] CliniSytn Care Team Providers Care General Utility Maintenance Repairer Name Role Phone Nathen Powell MD Primary Care Provider Nathen Powell MD Referring Provider Shaheed CORTEZ, Dr. Ndiaye Attending Provider [phone] Senthil Hummel Attending Unavailable Nathen Powell Referring [...] 2017 1:00am August 26, 2019 11:22am [place] (6 sources) Start: 08-26-2019 End: 11-03-2024 take 1 capsule by mouth twice daily at mealtime [place] 450 mg capsule Discontinued 450 mg PO TWICE A DAY August 26, 2019 12:00am November 03, 2024 3:30pm give with food (meal/snack) Start: 08-26-2019 take 450 mg by mouth twice daily at mealtime [facility] [place] Active 450 MG PO TWICE A DAY August 26, 2019 12:00am give with food (meal/snack) Start: 04-15-2017 End: 08-26-2019 take 1 capsule by mouth twice daily [facility] [place] 160 MG capsule Discontinued 160 mg PO TWICE A DAY April 15, 2017 1:00am August 26, 2019 11:22am Start: 04-15-2017 End: 08-26-2019 take 160 mg by mouth twice daily [place] Disconti nued 160 MG PO TWICE A [...] Facility Cardiology Visit Reporton Cardiology Visit Report [facility] [id number] [facility]. [address] [place] [address] OFFICE VISIT Date of Service: 11/03/24 MR#: [id number] Acct: [id number] Name: DOV ANNE Rep #: [id number] : 1965 Provider: Dr. Senthil Hummel MD Age/Sex: 59/M Location: [facility] [place] Status: Signed HPI HPI History of [...] Monitor Intake Visit Reasons: 1 Y FU Community Organizer Required: No Accompanied by: Self Is patient [...] mg/dL (4 (more content not included)... Normal [facility] - Microbiology an d Antimicrobial susceptibilityon 01-15-2022 SARS-CoV-2 (COVID-19) RNA JESSICA+probe Ql (Unsp spec) Detected Not Detect [facility] Work Phone: Comment on above: Normal Reference [...] manual screening 40.6 mg/L NO RANGE EST. [facility] Work Phone: Absolute lymphocyte counton 11-22-2021 Lymphocytes Auto (Unsp spec) [#/Vol] 1.55 10*3/uL 0.83-4.51 [facility] Work Phone: Basophil percentageon 2021 Basophils/100 WBC (Bld) 0.4 % 0-1 [facility] Work Phone: Bilirubin [Mass/Vol] 0.80 mg/dL 0.20-1.00 [facility] Work Phone: Comment on above: For patients on eltr ombopag therapy, use of Dimension Vernalis TBIL is not recommended. Chloride [Moles/Vol] 106 mmol/L 98-107 [facility] Work Phone: Cholesterol [Mass/Vol] 187 mg/dL <200 [facility] Work Phone: Comment on above: <200 mg/dL Desirable 200-240 mg/dL Borderline >240 mg/dL High Risk Eosinophils/100 WBC (Bld) 2.6 % 0-5 [facility] Work Phone: Glucose [Mass/Vol] 131 mg/dL 74-106 [facility] Work Phone: Comment on above: Fasting Glucose resu lt greater than or equal to 126 mg/dL suggests DIABETES MELLITUS per A.D.A. criteria. Neutrophils (Bld) [#/Vol] 3.6 10*3/uL 2.0-7.7 [facility] Work Phone: Neutrophils/100 WBC (Bld) 62.5 % 47-70 [facility] Work Phone: Potassium [Moles/Vol] 4.0 mmol/L 3.5-5.1 [facility] Work Phone: Protein [Mass/Vol] 7.3 g/dL 6.4-8.2 [facility] Work Phone: Sodium [Moles/Vol] 137 mmol/L 136-145 [facility] Work Phone: Triglyceride [Mass/Vol] 197 mg/dL <199 [facility] Work Phone: Comment on above: The drugs N-Acetylcy steine and Metamizole may falsely depress this assay.Serum Triglycerides Reference Interval Normal <150 mg/dL Borderline high 150 - 199 mg/dL High 200 - 499 mg/dL Very High > or = 500 mg/dL WBC (Bld) [#/Vol] 5.7 10*3/uL 4.4-11.0 [facility] Work Phone: Blood erythrocytes count (nu mber/volume)on 11-22-2021 RBC (Bld) [#/Vol] 4.44 10*6/uL 4.6-6.2 [facility] Work Phone: Blood hemoglobin measurement (mass/volume)on 11-22-2021 Hemoglobin (Bld) [Mass/Vol] 13.6 g/dL 13.0-16.5 [facility] Work Phone: Blood lymphocytes/100 leukoc yteson 11-22-2021 Lymphocytes/100 WBC (Bld) 27.2 % 19-41 [facility] Work Phone: Blood monocytes/100 leukocyt eson 11-22-2021 Monocytes/100 WBC (Bld) 6.9 % 0-10 [facility] Work Phone: Blood platelet mean volumeon 11-22-2021 Platelet mean volume (Bld) [Entitic vol] 9.1 fL 6.2-12.0 [facility] Work Phone: Determination of erythrocyte mean corpuscular volume (MCV)on 11-22-2021 MCV (RBC) [Entitic vol] 91.7 fL 80-94 [facility] Work Phone: Hematocrit Auto (Bld) [Volum e fraction]on 11-22-2021 Hematocrit (Bld) [Volume fraction] 40.7 % 40-54 [facility] Work Phone: Laboratory - Chemistry and C hemistry - challengeon 11-22-2021 ALP [Catalytic activity/Vol] 59 U/L 45-117 [facility] Work Phone: ALT [Catalytic activity/Vol] 32 U/L 16-61 [facility] Work Phone: CO2 [Moles/Vol] 28.0 mmol/L 21.0-32.0 [facility] Work Phone: Globulin (S) [Mass/Vol] 3.5 g/dL 2.2-4.2 [facility] Work Phone: Urea nitrogen/Creatinine [Mass ratio] 24.6 mg/mg 10-20 [facility] Work Phone: Laboratory - Hematology and Cell countson 11-22-2021 Erythrocyte distribution width (RBC) [Entitic vol] 43.9 fL 35.1-43.9 [facility] Work Phone: Erythrocyte distribution width (RBC) [Ratio] 13.2 % 11.6-14.6 [facility] Work Phone: Immature granulocytes/100 WBC (Bld) 0.400 % 0.0-0.9 [facility] Work Phone: Comment on above: IG% - Immature Granu locytes (promyelocytes, myelocytes and metamyelocytes) > 1% indicates that a LEFT SHIFT is Present. MCH (RBC) [Entitic mass] 30.6 pg 27.0-32.0 [facility] Work Phone: Nucleated RBC/100 WBC (Bld) [Ratio] 0 % 0-5 [facility] Work Phone: MCHC Auto (RBC) [Mass/Vol]on 11-22-2021 MCHC (RBC) [Mass/Vol] 33.4 g/dL 32-36 [facility] Work Phone: No Panel Informationon 11-22 Estimated GFR (MDRD) Amer 119 mL/min >60 [facility] Work Phone: Comment on above: GFR Calc Estimated GFR (MDRD) Non-Af Amer 98 mL/min >60 [facility] Work Phone: Comment on above: Non- GFR Calc Platelets bldon 11-22-2021 Platelets (Bld) [#/Vol] 117 10*3/uL 150-450 [facility] Work Phone: Serum or plasma albumin paulina urement (mass/volume)on 11-22-2021 Albumin [Mass/Vol] 3.8 g/dL 3.2-5.0 [facility] Work Phone: Serum or plasma albumin/glob ulin mass ratioon 11-22-2021 Albumin/Globulin [Mass ratio] 1.1 {ratio} 0.9-2.4 [facility] Work Phone: Serum or plasma calcium paulina urement (mass/volume)on 11-22-2021 Calcium [Mass/Vol] 8.8 mg/dL 8.5-10.1 [facility] Work Phone: Serum or plasma cholesterol in HDL measurement (mass/volume)on 11-22-2021 Cholesterol in HDL [Mass/Vol] 42 mg/dL >40 [facility] Work Phone: Comment on above: The drugs N-Acetylcy steine and Metamizole may falsely depress this assay. Reference Range HDL <40 mg/dL Low HDL Cholesterol HDL >or= 60 mg/dL High HDL Cholesterol Serum or plasma cholesterol in VLDL measurement (mass/volume)on 11-22-2021 Cholesterol in VLDL [Mass/Vol] 39 mg/dL 5-40 [facility] Work Phone: Serum or plasma creatinine m easurement (mass/volume)on 11-22-2021 Creatinine [Mass/Vol] 0.86 mg/dL 0.70-1.30 [facility] Work Phone: Comment on above: The validity of the calculated GFR & GFRAA in patients over 70 years has not been determined. Clinical correlation is essential. Serum or plasma low density lipoprotein (LDL) cholesterol measurement (mass/volume)on 11-22-2021 Cholesterol in LDL [Mass/Vol] 106 mg/dL 0-130 [facility] Work Phone: Serum or plasma urea nitroge n measurement (mass/volume)on 11-22-2021 Urea nitrogen [Mass/Vol] 21 mg/dL 7-18 [facility] Work Phone: Thin prep Papanicolaou smear with manual screeningon 11-22-2021 Thin prep Papanicolaou smear with manual screening 20 U/L 15-37 [facility] Work Phone: Thin prep Papanicolaou smear with manual screening 3 5-15 [facility] Work Phone: Whole blood hemoglobin A1c/t otal hemoglobin ratio (mass fraction)on 11-22-2021 HbA1c (Bld) [Mass fraction] 6.6 % 3.8-5.6 [facility] Work Phone: Comment on above: Normal < 5.7 % Predi abetic 5.7 - 6.4 % Diabetic >or= 6.5 % Please note range changes. Vital Signs Date Time Vital Sign Value Performing Clinician Faci catyy 11-03-2024 15:27-0400 Body height 172.72 cm Nathen Powell MD Work Phone: [facility] 11-03-2024 15:27-0400 Body mass index (BMI) [Ratio] 36.8 kg/m2 Nathen Powell MD Work Phone: [facility] 11-03-2024 15:27-0400 Body weight 109.76 kg Nathen Powell MD Work Phone: [facility] 11-03-2024 15:27-0400 Diastolic blood pressure 84 mm[Hg] Nathen Powell MD Work Phone: [facility] 11-03-2024 15:27-0400 Heart rate 68 /min Nathen Powell MD Work Phone: [facility] 11-03-2024 15:27-0400 Respiratory rate 16 /min Nathen Powell MD Work Phone: [facility] 11-03-2024 15:27-0400 Systolic blood pressure 122 mm[Hg] Nathen Powell MD Work Phone: [facility] Encounters Encounter Date Encounter Type Care Provider Facility Start: 12-25-2024 ambulatory Nathen Powell Facility:[facility] Start: 11-03-2024 End: 11-03-[address] Senthil Hummel MD -[facility] Work Phone: Start: 11-03-2024 End: 11-03-2024 ambulatory Nathen Powell MD Work Phone: [facility] Work Phone: Start: 01-15-2022 End: 01-15-2022 ambulatory [facility] Work Phone: Start: 01-15-2022 End: 01-15-2022 Patient encounter procedure [facility] Start: 11-24-2021 End: 11-24-2021 Patient encounter procedure [facility] Start: 11-22-2021 End: 11-22-2021 Patient encounter procedure [facility], [facility] Immunizations Immunization Date Immunization Notes Care Provider [facility] 04-02-2024 influenza, seasonal, injectable, preservative free Nathen Powell MD Work Phone: [facility] 04-04-2023 influenza, injectabl e, quadrivalent, preservative free Nathen Powell MD Work Phone: [facility] 04-09-2022 influenza, injectabl e, quadrivalent, preservative free Nathen Powell MD Work Phone: [facility] 03-02-2022 [facility] Nathen Powell MD Work Phone: [facility] 04-04-2021 [facility] ([facility] 04-04-2021 influenza, injectabl e, quadrivalent, preservative free Nathen Powell MD Work Phone: [facility] 04-04-2021 influenza, seasonal, injectable [facility] Work Phone: 06-28-2020 [facility] ([facility]) [facility] 05-31-2020 [facility] ([facility] 03-24-2020 influenza, injectabl e, quadrivalent, preservative free Nathen Powell MD Work Phone: [facility] 03-24-2020 influenza, seasonal, injectable [facility] Work Phone: 04-13-2019 influenza, injectabl e, quadrivalent, preservative free Nathen Powell MD Work Phone: [facility] 04-13-2019 influenza, seasonal, injectable [facility] Work Phone: 04-17-2018 influenza, injectabl e, quadrivalent, preservative free Nathen Powell MD Work Phone: [facility] 04-17-2018 influenza, seasonal, injectable [facility] Work Phone: 03-13-2017 influenza, injectabl e, quadrivalent, preservative free Nathen Powell MD Work Phone: [facility] 03-13-2017 influenza, seasonal, injectable [facility] Work Phone: 02-16-2016 influenza, injectabl e, quadrivalent, preservative free Nathen Powell MD Work Phone: [facility] 02-16-2016 influenza, seasonal, injectable [facility] Work Phone: 03-16-2015 influenza, injectabl e, quadrivalent, preservative free Nathen Powell MD Work Phone: [facility] 03-16-2015 influenza, seasonal, injectable [facility] Work Phone: 02-11-2014 influenza, injectabl e, quadrivalent, preservative free Nathen Powell MD Work Phone: [facility] 02-11-2014 influenza, seasonal, injectable [facility] Work Phone: 04-13-2013 Influenza virus vaccine [facility] Payers Date Payer Category Payer Self-pay [id number] 2016 Unknown [id number] Self-pay SELF PAY INSURANCE [id number] Unknown [id number] Unknown [id number] Social History Date Type Detail Facility Start: [facility]03-[facility] Work Phone: Start: 1965 Sex Assigned At Male [facility] Start: 06-29-2022 [facility] Evaluation note Note Date & Type Note Facility Evaluation note No assessment information availa ble [facility] Work Phone: Reason for referral (narrative) Note Date & Type Note Facility Reason for referral (narrative) No reason for referral information available [facility] Work Phone: Chief Complaint and Reason for [...] No April 15 017 3:11pm Power of Condominium Property Manager No April 15, 2017 3:11pm Advance Directive Response Recorded Date/ Time Living Will No April 15 017 3:11pm Do you have a Healthcare Power of Condominium Property Manager? No April 15, 2017 3:11pm Summary [...] section and content) DATE CREATED AUTHOR 12/24/2024 [facility] FOR RECORDS PERTAINING TO PATIENTS WHO ARE [...] BE BASED ON THE PRIMARY CLINICAL RECORDS. [employer] provides no warranty or guarantee of the accuracy or completeness of information in this document.
--- NOTE | 2024-12-28 07:42 | CA.SCORE ---
Calcium Scoring Date of Study:: 12/25/24 Indications Indications: Hypertension diabetes Coronary Calcium Scoring: High-resolution Computed Tomographic imaging of the chest was performed on [12/25/24 ], with particular attention paid to the coronary arteries. Images from the examination were analyzed for the presence and extent of coronary artery calcification , using coronary calcium quantification software. The patient tolerated the procedure well and there were no complications. The results of the coronary calcification analysis are provided below. Findings Coronary Artery Left Main (LM): 0 Left Anterior Descending (LAD): 31 Left Circumflex (LCX): 0 Right Coronary Artery (RCA): 0 Total Agatston Score: 31 Percentile Rankin-50% Calcium Scoring Interpretation: Different methods to categorize the overall amount of coronary plaque. Overall amount CAC SIS Visual of coronary plaque P1 Mild -100 <2 1-2 vessels with mild amount of plaque P2 Moderate 101-300 3-4 1-2 vessels with moderate amount, 3 vessels with mild amount of plaque P3 Severe 301-999 5-7 3 vessels with moderate amount, 1 vessel with severe amount of plaque P4 Extensive >1000 >8 2-3 vessels with severe amount of plaque Calcium Score: Mild: 1-2 vessels w/mild amount of plaque Conclusion: Mild atherosclerotic plaque.
== END | disposition home or self-care (01) ==
PROVIDERS: PCP Family Medicine; Referring Provider Internal Medicine Cardiovascular Disease; Visit Provider Internal Medicine Cardiovascular Disease
DX: I10 Essential (primary) hypertension (principal); I45.10 Unspecified right bundle-branch block
CPT/HCPCS: 75571; 76380